=== PATIENT | female | born 1945 | race Caucasian/White ===

== ENCOUNTER → 2024-03-19 06:48 | Outpatient (REF) | payer MEDICARE, BC, SELFPAY | LOC: RAD 06:48 | PROVIDERS: ATTENDING PHYSICIAN Internal Medicine Cardiovascular Disease; FAMILY PHYSICIAN Hospitalist | DX: I71.21 Aneurysm of the ascending aorta, without rupture (principal) | CPT/HCPCS: 71260; Q9967 ==